=== PATIENT | female | born 1985 | race Caucasian/White ===

== ENCOUNTER 2017-01-20 20:52 | Emergency (ER) | payer OTHER ==
[2017-01-20 21:07] VITALS: BP 160/93
--- NOTE | 2017-01-20 22:08 | UC ---
General HPI - HPI Summary HPI Summary: HAS HAD BRONCHITIS WITH HARSH COUGH FOR PAST 2 WEEKS OR SO. COUGH HAS IMPROVED BUT FOR PAST WEEK SHE HAS HAD RIB CAGE PAIN AT BRA LINE WORSE ON THE RIGHT. FEELS IT IS GETTING WORSE. WORSE WITH DEEP BREATHS AND COUGHING. NO FEVER, SOB OR CP. PT TACHYCARDIC BUT REPORTS SHE HAS SIGNIFICANT WHITE COAT SYNDROME. BP AND PULSE ALWAYS GO UP AT DOCTORS. USUALLY IN THE 120S. - History of Current Complaint Chief Complaint: UCAbdominalPain Stated Complaint: ABDOMINAL PAIN, AND CHEST CONGESTION Time Seen by Provider: 01/20/17 21:50 Hx Obtained From: Patient Onset/Duration: Gradual Onset, Lasting Days, Still Present Timing: Constant Onset Severity: Moderate Current Severity: Moderate Pain Intensity: 7 Associated Signs & Symptoms: Positive: Cough - Allergy/Home Medications Allergies/Adverse Reactions: Allergies Allergy/AdvReac Type Severity Reaction Status Date / Time No Known Allergies Allergy Verified 01/20/17 21:07 Home Medications: Home Medications ALPRAZolam TAB* [Xanax TAB*] 0.5 mg PO TID PRN 01/20/17 [History Confirmed 01/20] cloNIDine TAB* [Catapres 0.1 MG TAB*] 0.1 mg PO BEDTIME 01/20/17 [History Confirmed 01/20/17] PMH/Surg Hx/FS Hx/Imm Hx Endocrine History Of: Reports: Diabetes - Gestational Denies: Thyroid Disease Cardiovascular History Of: Reports: Cardiac Disorders - SVT and ablation Denies: Hypertension Respiratory History Of: Denies: COPD, Asthma GI/ History Of: Denies: Ulcer Psychological History Of: Reports: Anxiety - History of anxiety and trichotillomania, followed by psych at [place] in [facility] - Surgical History Surgical History: Yes Surgery Procedure, Year, and Place: cardiac ablation 2004. - 2013 - Family History Known Family History: Positive: Cardiac Disease, Hypertension - Social History Alcohol Use: Weekly Alcohol Amount: 1-2 Substance Use Type: None Substance Use Comment - Amount & Last Used: 4 cups today Smoking Status (MU): Never Smoked Tobacco Review of Systems Constitutional: Negative Skin: Negative Respiratory: Negative, Cough Cardiovascular: Negative Gastrointestinal: Negative Musculoskeletal: Arthralgia, Myalgia All Other Systems Reviewed And Are Negative: Yes Physical Exam Triage Information Reviewed: Yes Appearance: Well-Appearing, No Pain Distress, Well-Nourished Vital Signs: Initial Vital Signs Temp 98.2 F 01/20/17 21:03 Pulse 142 01/20/17 21:03 Resp 16 01/20/17 21:03 BP 160/93 01/20/17 21:03 Pulse Ox 100 01/20/17 21:03 Vital Signs Reviewed: Yes Eyes: Positive: Conjunctiva Clear ENT: Positive: Hearing grossly normal Neck: Positive: Supple Respiratory Exam: Normal Cardiovascular: Positive: Tachycardia Abdomen Description: Positive: Soft Musculoskeletal: Positive: ROM Intact, No Edema, Other: - TTP ANTERIOR RIB CAGE BILATERALLY. WORSE ON RIGHT WITH AREA OF POINT TENDERNESS Neurological: Positive: Alert Psychological: Positive: Age Appropriate Behavior Skin: Negative: rashes Diagnostics - Radiology BILATERAL RIBS AND CXR Xray Interpretation: No Acute Changes Radiology Interpretation Completed By: Radiologist Course/Dx - Differential Dx - Multi-Symptom Provider Diagnoses: 1. INTERCOSTAL MUSCLE STRAIN. 2. TACHYCARDIA AND ELEVATED BP - WHITE COAT/ANXIETY Discharge - Discharge Plan Condition: Stable Disposition: HOME Prescriptions: Cyclobenzaprine TAB* [Flexeril TAB*] 10 mg PO BID PRN #30 tab PRN Reason: Pain Naproxen [Naproxen EC] 500 mg PO BID PRN #30 tab PRN Reason: Pain Patient Education Materials: Muscle Strain (ED) Referrals: Keith Blunt MD [Primary Care Provider] - (WITHIN 4 WEEKS) Additional Instructions: RIB AND CHEST XRAYS UNREMARKABLE. GO TO THE ER WITHOUT FAIL IF YOUR SYMPTOMS WORSEN OR YOU DEVELOP SHORTNESS OF BREATH, CP OR ANY OTHER CONCERNING SYMPTOMS. FOLLOW-UP WITH YOUR PCP WITHIN A MONTH TO MONITOR YOUR BP AND HEART RATE.
--- NOTE | 2017-01-20 22:44 | RAD ---
Indication: Rib pain, cough 3 views of the right ribs and 3 views of the left ribs are reviewed. No definite fracture of the ribs is identified. The lung rick demonstrate no pleural fluid, pneumonia or pneumothorax. IMPRESSION: No fracture of the ribs is noted. No pneumothorax is noted.
[2017-01-20] MEDS ORDERED: Naproxen TAB* 250 MG PO ONE (22:55)
[2017-01-20] MEDS ORDERED: Cyclobenzaprine TAB* 10 MG PO ONE (22:55)
== END 2017-01-20 23:04 | disposition home or self-care (01) ==
LOC: UCEAST 20:52
DX: S29.011A Strain of muscle and tendon of front wall of thorax, initial encounter (principal); X58.XXXA Exposure to other specified factors, initial encounter; Y93.9 Activity, unspecified; Y92.9 Unspecified place or not applicable; R00.0 Tachycardia, unspecified; I10 Essential (primary) hypertension; F41.9 Anxiety disorder, unspecified
CPT/HCPCS: 71111; 99212; A9270-GY; G0463